=== PATIENT | female | born 1950 | race Caucasian/White ===

== ENCOUNTER 2022-12-28 15:05 | Inpatient (IN) | payer MEDICARE ==
[~2022-12-28] VITALS: Ht 165.1 cm; Wt 77.1 kg
[2022-12-28] MEDS ORDERED: acetaminophen 325mg tablet PO PRN ×2 (15:15)
[2022-12-28] MEDS ORDERED: magnesium hydroxide 30ml (MOM) UD suspension PO PRN (15:15)
[2022-12-28] MEDS ORDERED: magnesium Cl slow-release 64mg tablet PO PRN (15:15)
[2022-12-28] MEDS ORDERED: ondansetron/PF 4mg/2ml inj IV PRN (15:15)
[2022-12-28] MEDS ORDERED: magnesium 4gm in 100ml NS 100 ML IV PRN (15:15)
[2022-12-28] MEDS ORDERED: mag hydrox/Alum hydrox/simeth 30ml oral suspension PO PRN (15:15)
[2022-12-28] MEDS ORDERED: potassium Cl 40MEQ/1/2NS 520ml 520 ML IV PRN (15:15)
[2022-12-28] MEDS ORDERED: magnesium 2GM in 50ml NS 50 ML IV PRN (15:15)
[2022-12-28] MEDS ORDERED: potassium Cl 20 mEq SR tablet PO PRN (15:15)
--- NOTE | 2022-12-28 16:45 | NUR ---
Message: Ainsley Murcia [id number] No diet order. Eats regular minced moist diet. Thin liquids usually. NPO after midnight for [place]? Jess [id number]
[2022-12-28 18:00] VITALS: BP 113/62; PULSE 72; RESP 18; TEMP 97.4; O2SAT 92
[2022-12-28] MEDS ORDERED: LEVE500T PO (18:03)
[2022-12-28] MEDS ORDERED: DOCU-149 PO (18:03)
[2022-12-28] MEDS ORDERED: CLON-473 PO (18:03)
[2022-12-28] MEDS ORDERED: FAMO20TA79 PO (18:03)
[2022-12-28] MEDS ORDERED: SENN-263 PO (18:03)
[2022-12-28] MEDS ORDERED: VENL75TA4 PO (18:03)
[2022-12-28] MEDS ORDERED: CARV-49 PO (18:03)
[2022-12-28] MEDS ORDERED: FENO160T30 PO (18:03)
[2022-12-28] MEDS ORDERED: HYDR-3965 PO ×2 (18:03)
[2022-12-28] MEDS ORDERED: EZET10TA6 PO (18:03)
[2022-12-28] MEDS ORDERED: AMLO10TA48 PO (18:03)
[2022-12-28] MEDS ORDERED: ATOR40TA14 PO (18:03)
[2022-12-28] MEDS ORDERED: VIBE75TA PO (18:03)
[2022-12-28] MEDS ORDERED: MULT-1085 PO (18:03)
[2022-12-28] MEDS ORDERED: LOSA100T58 PO (18:03)
[2022-12-28 18:15] LABS: BASOPHILS % (AUTO) 0.5 % (0-1); EOSINOPHILS # (AUTO) 0.1 X10'3 (0-0.9); EOSINOPHILS % (AUTO) 0.7 % (0-6); HEMATOCRIT 36.8 % (35.0-45.0); HEMOGLOBIN 11.7 g/dl (12.0-16.0); LYMPHOCYTES # (AUTO) 2.6 X10'3 (1.1-4.8); MEAN CORPUSCULAR HEMOGLOBIN 28.3 PG (27.0-31.0); MEAN CORPUSCULAR HGB CONC 31.9 g/dL (33.0-36.5); MEAN CORPUSCULAR VOLUME 88.6 FL (78-98); MONOCYTES % (AUTO) 11.8 % (2-12); NEUTROPHILS # (AUTO) 4.7 X10'3 (1.8-7.7); PLATELET COUNT 428 X10'3 (140-440); RED BLOOD COUNT 4.15 X10'6 (4.20-5.60); RED CELL DISTRIBUTION WIDTH 17.3 % (11.5-14.5); WHITE BLOOD COUNT 8.4 X10'3 (4.5-11.0)
[2022-12-28 18:25] LABS: APTT 23 SECONDS (22-32); PROTHROMBIN TIME 10.6 SECONDS (9.0-12.0)
[2022-12-28 18:26] LABS: ALANINE AMINOTRANSFERASE 35 U/L (12-78); ALBUMIN 2.4 G/DL (3.4-5.0); ALBUMIN/GLOBULIN RATIO 0.5 (1.1-1.5); ALKALINE PHOSPHATASE 121 IU/L (46-116); ANION GAP 5 (8-16); ASPARTATE AMINO TRANSFERASE 26 U/L (10-37); BILIRUBIN,TOTAL 0.3 MG/DL (0.1-1.0); BLOOD UREA NITROGEN 14 MG/DL (7-18); BUN/CREATININE RATIO 22.2 (10.0-20.0); CALCIUM 11.8 MG/DL (8.5-10.1); CHLORIDE 100 MMOL/L (99-107); CREATININE 0.63 MG/DL (0.40-0.90); GLUCOSE 121 MG/DL (70-104); MAGNESIUM 1.8 MG/DL (1.5-2.4); SODIUM 132 MMOL/L (135-145); TOTAL CARBON DIOXIDE 27.5 MMOL/L (24-32); eCRCL 72 ML/MIN; eGFR > 90 ML/MIN
--- NOTE | 2022-12-28 18:26 | NUR ---
Report given to Renetta Jackson RN.
[2022-12-28] MEDS: normal saline 1000ml 1,000 ML IV SCH (18:47)
[2022-12-28] MEDS: piperacillin/tazo 4.5gm/100ml 100 ML IV SCH (18:47)
[2022-12-28] MEDS ORDERED: cloNIDine 0.1 mg tablet PO PRN (18:55)
[2022-12-28] MEDS ORDERED: vancomycin/NS 1 GM ADD-VANTAGE 250 ML IV SCH (19:00)
[2022-12-28 20:00] VITALS: RESP 18; O2SAT 95
[2022-12-28] MEDS: K and/or MAG REPLACEMENT MC SCH (20:00)
[2022-12-28] MEDS: vancomycin/NS 1 GM ADD-VANTAGE 250 ML IV SCH (20:47)
[2022-12-28] MEDS: carvedilol 6.25mg tablet PO SCH (20:49)
[2022-12-28] MEDS: venlafaxine 37.5mg tablet PO SCH (20:49)
[2022-12-28] MEDS: atorvastatin 20mg tablet PO SCH (20:49)
[2022-12-28] MEDS: levetiracetam 250mg tablet PO SCH (20:49)
[2022-12-28] MEDS: sennosides 8.6mg tablet PO SCH (20:50)
[2022-12-28] MEDS: HYDROcodone/acetaminophen 10/325mg tab PO PRN (21:59)
[2022-12-28 22:00] VITALS: BP 107/46; PULSE 76; RESP 10; TEMP 98.5; O2SAT 97
[2022-12-28] MEDS: diatr meglu/diatrizoate 30ml oral sol.-(3 dose) bottle PO SCH (22:40)
[2022-12-29] MEDS: piperacillin/tazo 4.5gm/100ml 100 ML IV SCH ×3 (00:25→16:46)
[2022-12-29] MEDS: normal saline 1000ml 1,000 ML IV SCH ×3 (06:33→21:25)
[2022-12-29 06:48] VITALS: BP 135/55; PULSE 66; RESP 14; TEMP 97.6; O2SAT 94
[2022-12-29] MEDS: diatr meglu/diatrizoate 30ml oral sol.-(3 dose) bottle PO SCH ×2 (07:00→11:28)
[2022-12-29] MEDS: vancomycin/NS 1 GM ADD-VANTAGE 250 ML IV SCH ×2 (07:01→21:37)
[2022-12-29 07:03] LABS: BASOPHILS # (AUTO) 0.1 X10'3 (0-0.2); BASOPHILS % (AUTO) 0.7 % (0-1); EOSINOPHILS # (AUTO) 0.2 X10'3 (0-0.9); EOSINOPHILS % (AUTO) 2.9 % (0-6); HEMATOCRIT 34.1 % (35.0-45.0); HEMOGLOBIN 11.1 g/dl (12.0-16.0); LYMPHOCYTES # (AUTO) 2.7 X10'3 (1.1-4.8); LYMPHOCYTES % (AUTO) 35.5 % (21-51); MEAN CORPUSCULAR HEMOGLOBIN 28.7 PG (27.0-31.0); MEAN CORPUSCULAR HGB CONC 32.4 g/dL (33.0-36.5); MEAN CORPUSCULAR VOLUME 88.7 FL (78-98); MEAN PLATELET VOLUME 8.1 FL (7.4-10.4); MONOCYTES # (AUTO) 0.9 X10'3 (0-0.9); NEUTROPHILS # (AUTO) 3.7 X10'3 (1.8-7.7); NEUTROPHILS % (AUTO) 48.9 % (42-75); PLATELET COUNT 372 X10'3 (140-440); RED BLOOD COUNT 3.85 X10'6 (4.20-5.60); RED CELL DISTRIBUTION WIDTH 17.1 % (11.5-14.5); WHITE BLOOD COUNT 7.5 X10'3 (4.5-11.0)
[2022-12-29 07:22] LABS: ALBUMIN 2.1 G/DL (3.4-5.0); ANION GAP 7 (8-16); BLOOD UREA NITROGEN 13 MG/DL (7-18); BUN/CREATININE RATIO 19.4 (10.0-20.0); CALCIUM 11.3 MG/DL (8.5-10.1); CHLORIDE 103 MMOL/L (99-107); CREATININE 0.67 MG/DL (0.40-0.90); GLUCOSE 107 MG/DL (70-104); MAGNESIUM 1.7 MG/DL (1.5-2.4); POTASSIUM 4.1 MMOL/L (3.5-5.1); SODIUM 136 MMOL/L (135-145); TOTAL CARBON DIOXIDE 26.2 MMOL/L (24-32); eCRCL 67 ML/MIN; eGFR 86 ML/MIN
[2022-12-29 07:30] VITALS: RESP 14; O2SAT 94
[2022-12-29] MEDS: venlafaxine 37.5mg tablet PO SCH ×3 (07:39→21:23)
[2022-12-29] MEDS: multivitamins, therapeutics tablet PO SCH (07:39)
[2022-12-29] MEDS: docusate sod 100mg capsule PO SCH (07:39)
[2022-12-29] MEDS: levetiracetam 250mg tablet PO SCH ×2 (07:39→21:21)
[2022-12-29] MEDS: amLODIPine 5mg tablet PO SCH (07:40)
[2022-12-29] MEDS: carvedilol 6.25mg tablet PO SCH ×2 (07:40→21:20)
[2022-12-29] MEDS: famotidine 20mg tablet PO SCH (07:40)
[2022-12-29] MEDS: ezetimibe 10mg tablet PO SCH (07:40)
[2022-12-29] MEDS: fenofibrate 145mg tablet PO SCH (07:40)
[2022-12-29] MEDS: Vibegron (Gemtesa) 75 MG TAB PO SCH (08:00)
[2022-12-29] MEDS: K and/or MAG REPLACEMENT MC SCH ×2 (08:00→20:00)
[2022-12-29] MEDS: losartan 50mg tablet PO SCH (08:37)
[2022-12-29] MEDS ORDERED: iohexol 300mg/ml 100ml inj. ONE (10:26)
--- NOTE | 2022-12-29 10:32 | NUR ---
Initial: Pt admit DX stage III/IV sacral wound hx stroke w/ cognitive deficits stays in bed declining PT at baseline per EMR. Pt on MM5/thin diet which tolerated at facility per caregiver in EMR. Pending initial PO trends though to be NPO after midnight tonight for debridement in OR tomorrow per EMR. Receiving routine MVI; RD TC to resident MD regarding change to MVM w/ Fe and vitamin C for wound healing needs- MD agreeable. No DM though just admit yesterday receiving routine colace BID and senna HS per EMR. Will monitor for PO tolerance and further nutrition intervention needs this admit. Rec: 1. continue MM5/thin diet; tolerates at baseline per caregiver. Consider STRATEGIC PLANNING MANAGER BSS if any PO tolerance concerns 2. monitor PO acceptance for ONS needs post-op; Ronni vs Ensure Enlive pending PO hx 3. routine MVM w/ Fe and vitamin C for wound healing needs 4. routine bowel care 5. scaled wt this admit; subsequent weekly wt Addendum: 12/29/22 at [address] Amended: Links added.
[2022-12-29 11:46] VITALS: BP 116/53; PULSE 66; RESP 16; TEMP 97.7; O2SAT 98
[2022-12-29] MEDS ORDERED: multi-vitamin w/minerals & ferrous gluconate 9 MG/15 ML oral LIQUID PO SCH (12:15)
--- NOTE | 2022-12-29 12:16 | NUR ---
PRESSURE ULCER EDUCATION: DEFINITION: A pressure ulcer is an area of skin that breaks down when you stay in one position too long. The constant pressure against the skin reduces the blood flow to that area and the affected tissue dies. CAUSES: "Being bedridden or in a wheelchair "Fragile skin "Having a chronic condition, such as diabetes or vascular disease "Inability to move certain parts of your body without assistance "Older age "Incontinence of urine or stool SYMPTOMS: "A reddened area that DOES NOT turn white when pressed on - this can be the beginning of a pressure ulcer "A blister, deep sore or a crater - these can be advanced pressure ulcers FIRST AID: "Relieve the pressure on this area "Keep the area clean and dry "Call your primary doctor if you see any of the above symptoms "DO NOT massage the area "DO NOT use a donut shaped or ring shaped pillow- these actually interfere with the blood flow and cause complications PREVENTION: "Check for pressure ulcers everyday "Change position at least every two hours to relieve pressure "Use items that help relieve pressure- pillows, sheepskin, foam padding, and powders. "Keep skin clean and dry "Eat healthy well balanced meals "Exercise daily IF YOU SEE ANY OF THESE SYMPTOMS WHILE IN THE HOSPITAL - TELL YOUR NURSE IMMEDIATELY. IF YOU SEE ANY OF THESE SYMPTOMS WHILE AT HOME OR HAVE ANY QUESTIONS OR CONCERNS ABOUT PRESSURE ULCERS - CALL YOUR PRIMARY DOCTOR IMMEDIATELY. Addendum: 12/29/22 at 1217 by Kiesha Auguste RN Amended: Links added.
--- NOTE | 2022-12-29 12:23 | NUR ---
patient down to CT
--- NOTE | 2022-12-29 12:26 | NUR ---
patient back to room
[2022-12-29] MEDS: ascorbic acid 500mg tablet PO SCH (16:42)
[2022-12-29 18:00] VITALS: BP 123/53; PULSE 73; RESP 16; TEMP 97.3; O2SAT 95
--- NOTE | 2022-12-29 18:44 | NUR ---
Problems reprioritized. Patient report given, questions answered & plan of care reviewed with SAM Chapa.
[2022-12-29 20:43] VITALS: RESP 14; O2SAT 95
[2022-12-29] MEDS: sennosides 8.6mg tablet PO SCH (21:21)
[2022-12-29] MEDS: HYDROcodone/acetaminophen 10/325mg tab PO PRN (21:23)
[2022-12-29] MEDS: atorvastatin 20mg tablet PO SCH (21:23)
[2022-12-29 21:30] VITALS: BP 124/49; PULSE 57; RESP 16; TEMP 98.4; O2SAT 93
--- NOTE | 2022-12-29 23:32 | NUR ---
FC 16 Fr inserted 2331. Patient tolerated well. Urine yellow, clear, no strong odor. Patient repositioned following insertion. Bed in lowest position; call light and fluids in reach.
[2022-12-30] VITALS (8 sets, daily range): BP systolic 135–149; BP diastolic 60–72; PULSE 57–81; RESP 12–20; TEMP 97.6–98.6; O2SAT 94–99
[2022-12-30] MEDS: piperacillin/tazo 4.5gm/100ml 100 ML IV SCH ×3 (00:14→17:47)
--- NOTE | 2022-12-30 06:19 | NUR ---
reported to days. noted pt resting - turn q2. only needed norco x1. anticipate surgery today but no orders. pre op ekg ordered. pt will need bath - pre op checklist started.
[2022-12-30] MEDS ORDERED: VANCOMYCIN LEVEL IV ONE (07:30)
[2022-12-30] MEDS: Vibegron (Gemtesa) 75 MG TAB PO SCH (08:00)
[2022-12-30] MEDS: K and/or MAG REPLACEMENT MC SCH ×2 (08:00→20:00)
[2022-12-30] MEDS: ezetimibe 10mg tablet PO SCH (08:00)
--- NOTE | 2022-12-30 08:16 | NUR ---
Student documentation: I have reviewed all interventions, assessments performed and documented by [employer] Angel Luis GAGNON Student. Student Medication Administration: For medication-passes by student of [facility] program in the time frame of 0630 to 1300, medications were reviewed, dispensed, administered and documented per hospital policy.
--- NOTE | 2022-12-30 08:44 | NUR ---
Patient states last BM "Three days ago," 12/27/22 Addendum: 12/30/22 at 0849 by Jack BAUMAN Amended: Links added.
[2022-12-30 08:50] LABS: BASOPHILS % (AUTO) 0.6 % (0-1); EOSINOPHILS # (AUTO) 0.2 X10'3 (0-0.9); EOSINOPHILS % (AUTO) 2.5 % (0-6); HEMATOCRIT 33.6 % (35.0-45.0); LYMPHOCYTES % (AUTO) 26.2 % (21-51); MEAN CORPUSCULAR HEMOGLOBIN 28.8 PG (27.0-31.0); MEAN CORPUSCULAR HGB CONC 32.7 g/dL (33.0-36.5); MEAN CORPUSCULAR VOLUME 88.1 FL (78-98); MEAN PLATELET VOLUME 8.4 FL (7.4-10.4); MONOCYTES # (AUTO) 0.7 X10'3 (0-0.9); MONOCYTES % (AUTO) 9.7 % (2-12); NEUTROPHILS # (AUTO) 4.7 X10'3 (1.8-7.7); PLATELET COUNT 378 X10'3 (140-440); RED BLOOD COUNT 3.82 X10'6 (4.20-5.60); RED CELL DISTRIBUTION WIDTH 16.9 % (11.5-14.5); WHITE BLOOD COUNT 7.7 X10'3 (4.5-11.0)
[2022-12-30 08:58] LABS: PROTHROMBIN TIME 10.5 SECONDS (9.0-12.0)
[2022-12-30 09:03] LABS: ANION GAP 8 (8-16); BLOOD UREA NITROGEN 4 MG/DL (7-18); BUN/CREATININE RATIO 8.3 (10.0-20.0); CALCIUM 10.6 MG/DL (8.5-10.1); CHLORIDE 107 MMOL/L (99-107); CREATININE 0.48 MG/DL (0.40-0.90); GLUCOSE 98 MG/DL (70-104); MAGNESIUM 1.6 MG/DL (1.5-2.4); POTASSIUM 3.4 MMOL/L (3.5-5.1); SODIUM 139 MMOL/L (135-145); TOTAL CARBON DIOXIDE 23.8 MMOL/L (24-32); VANCOMYCIN,TROUGH 19.6 ug/mL (10.0-20.0); eCRCL 94 ML/MIN; eGFR > 90 ML/MIN
[2022-12-30] MEDS: vancomycin/NS 1 GM ADD-VANTAGE 250 ML IV SCH ×2 (09:25→21:46)
[2022-12-30] MEDS: normal saline 1000ml 1,000 ML IV SCH ×3 (09:25→21:49)
[2022-12-30] MEDS: docusate sod 100mg capsule PO SCH (09:26)
[2022-12-30] MEDS: carvedilol 6.25mg tablet PO SCH ×2 (09:27→21:51)
[2022-12-30] MEDS: losartan 50mg tablet PO SCH (09:28)
[2022-12-30] MEDS: venlafaxine 37.5mg tablet PO SCH ×3 (09:29→21:43)
[2022-12-30] MEDS: levetiracetam 250mg tablet PO SCH ×2 (09:30→21:45)
[2022-12-30] MEDS: fenofibrate 145mg tablet PO SCH (09:31)
[2022-12-30] MEDS: amLODIPine 5mg tablet PO SCH (09:31)
[2022-12-30] MEDS: famotidine 20mg tablet PO SCH (09:31)
[2022-12-30] MEDS: multivitamins, therapeutics tablet PO SCH (09:32)
[2022-12-30] MEDS: ascorbic acid 500mg tablet PO SCH ×2 (09:32→18:05)
[2022-12-30] MEDS: potassium Cl 20 mEq SR tablet PO PRN ×3 (09:58→21:40)
[2022-12-30] MEDS: morphine 2 MG/ML inj. syringe IV PRN (16:45)
[2022-12-30] MEDS: atorvastatin 20mg tablet PO SCH (21:40)
[2022-12-30] MEDS: sennosides 8.6mg tablet PO SCH (21:40)
[2022-12-30] MEDS: HYDROcodone/acetaminophen 10/325mg tab PO PRN (21:41)
--- NOTE | 2022-12-30 23:32 | NUR ---
Student documentation: I have reviewed interventions, assessments performed and documented by Salima GAINES [facility].
[2022-12-31] VITALS (23 sets, daily range): BP systolic 112–157; BP diastolic 47–106; PULSE 57–73; RESP 13–20; TEMP 97.5–98.3; O2SAT 94–99
[2022-12-31] MEDS: piperacillin/tazo 4.5gm/100ml 100 ML IV SCH ×3 (00:06→17:33)
--- NOTE | 2022-12-31 06:23 | NUR ---
reported to days. noted pt has surgery scheduled for this am. pre op wipes complete. repositioned [id number]
--- NOTE | 2022-12-31 06:55 | NUR ---
Neuromuscular - Left is weaker than right upper and lower Addendum: 12/31/22 at 0720 by Jack BAUMAN Amended: Links added.
[2022-12-31 06:57] LABS: BASOPHILS # (AUTO) 0.1 X10'3 (0-0.2); BASOPHILS % (AUTO) 0.8 % (0-1); EOSINOPHILS # (AUTO) 0.2 X10'3 (0-0.9); EOSINOPHILS % (AUTO) 3.5 % (0-6); HEMATOCRIT 34.3 % (35.0-45.0); LYMPHOCYTES # (AUTO) 2.2 X10'3 (1.1-4.8); LYMPHOCYTES % (AUTO) 31.3 % (21-51); MEAN CORPUSCULAR HEMOGLOBIN 28.3 PG (27.0-31.0); MEAN CORPUSCULAR VOLUME 88.4 FL (78-98); MONOCYTES # (AUTO) 0.8 X10'3 (0-0.9); MONOCYTES % (AUTO) 11.6 % (2-12); NEUTROPHILS # (AUTO) 3.7 X10'3 (1.8-7.7); NEUTROPHILS % (AUTO) 52.8 % (42-75); PLATELET COUNT 386 X10'3 (140-440); RED BLOOD COUNT 3.88 X10'6 (4.20-5.60); RED CELL DISTRIBUTION WIDTH 17.1 % (11.5-14.5)
[2022-12-31] MEDS: docusate sod 100mg capsule PO SCH (07:05)
[2022-12-31] MEDS: venlafaxine 37.5mg tablet PO SCH ×3 (07:05→21:33)
[2022-12-31] MEDS: losartan 50mg tablet PO SCH (07:05)
[2022-12-31] MEDS: K and/or MAG REPLACEMENT MC SCH ×2 (07:05→19:35)
[2022-12-31] MEDS: carvedilol 6.25mg tablet PO SCH ×2 (07:05→21:34)
[2022-12-31] MEDS: famotidine 20mg tablet PO SCH (07:06)
[2022-12-31] MEDS: ezetimibe 10mg tablet PO SCH (07:06)
[2022-12-31] MEDS: fenofibrate 145mg tablet PO SCH (07:06)
[2022-12-31] MEDS: Vibegron (Gemtesa) 75 MG TAB PO SCH (07:06)
[2022-12-31] MEDS: levetiracetam 250mg tablet PO SCH ×2 (07:06→21:34)
[2022-12-31] MEDS: multivitamins, therapeutics tablet PO SCH (07:06)
[2022-12-31] MEDS: ascorbic acid 500mg tablet PO SCH ×2 (07:06→17:33)
[2022-12-31] MEDS: amLODIPine 5mg tablet PO SCH (07:06)
[2022-12-31 07:08] LABS: ANION GAP 5 (8-16); BLOOD UREA NITROGEN 3 MG/DL (7-18); BUN/CREATININE RATIO 5.8 (10.0-20.0); CALCIUM 11.2 MG/DL (8.5-10.1); CHLORIDE 110 MMOL/L (99-107); CREATININE 0.52 MG/DL (0.40-0.90); GLUCOSE 93 MG/DL (70-104); MAGNESIUM 1.9 MG/DL (1.5-2.4); POTASSIUM 4.3 MMOL/L (3.5-5.1); SODIUM 142 MMOL/L (135-145); TOTAL CARBON DIOXIDE 26.8 MMOL/L (24-32); eCRCL 87 ML/MIN; eGFR > 90 ML/MIN
[2022-12-31] MEDS: vancomycin/NS 1 GM ADD-VANTAGE 250 ML IV SCH ×3 (08:00→23:29)
[2022-12-31] MEDS ORDERED: ondansetron/PF 4mg/2ml inj IV PRN (08:10)
[2022-12-31] MEDS ORDERED: proCHLORperazine 10 MG/2 ml inj IV PRN (08:10)
[2022-12-31] MEDS ORDERED: morphine 2 MG/ML inj. syringe IV PRN (08:10)
[2022-12-31] MEDS ORDERED: hydrALAZINE 20mg/ml inj. IV PRN (08:10)
[2022-12-31] MEDS ORDERED: labetalol 20mg/4ml (5mg/ml) syringe IV PRN (08:10)
[2022-12-31] MEDS: ringers solution, lacted 1,000 ML IV SCH ×2 (08:10→18:10)
[2022-12-31] MEDS ORDERED: morphine 4 MG/ML inj SYRINge IV PRN (08:10)
[2022-12-31] MEDS ORDERED: meperidine/PF 25mg/ml syringe IV PRN (08:15)
[2022-12-31] MEDS ORDERED: HYDROmorphone/PF 0.2 MG/ML SYRINGE IV PRN ×2 (08:15)
[2022-12-31] MEDS ORDERED: acetaminophen 1,000mg/100ml IV 100 ML IV PRN (08:15)
[2022-12-31] MEDS ORDERED: sevoflurane 250ml liquid IH ONE (08:18)
[2022-12-31] MEDS ORDERED: fentaNYL/PF 50MCG/1 ML 2ML syringe ONE (08:20)
[2022-12-31] MEDS ORDERED: midazolam 1 mg/ML 2ml injection ONE (08:21)
--- NOTE | 2022-12-31 08:22 | NUR ---
RN spoke with pharmacist regarding morning IV vanco and zosyn. Patient left for OR at 0745, IV meds held for now and pharm will work on retiming if need be
[2022-12-31] MEDS ORDERED: dexamethasone sod phosphate 4mg/ml inj. ONE (08:37)
[2022-12-31] MEDS ORDERED: ondansetron/PF 4mg/2ml inj ONE (08:37)
[2022-12-31] MEDS ORDERED: propofol inj 20 ML IV ONE ×2 (08:37→09:02)
[2022-12-31] MEDS ORDERED: LIDOcaine 2% (20mg/ml) 5ml vial ONE (08:37)
[2022-12-31] MEDS ORDERED: 0.9 % SODIUM CHLORIDE 10 ML VIAL ONE (08:44)
[2022-12-31] MEDS ORDERED: ePHEDrine 50MG/ML INJ. ONE (08:44)
--- NOTE | 2022-12-31 09:20 | NUR ---
Received from OR via BED, accompanied by Anesthesiologist DR. BURNHAM and report given by Anesthesiologist APATIENT WAKING UP, NO S/S OF PAIN, V/S WNL, CSM INTACT, SCD ON. DRESSING TO POSTERIOR BUTTOCKS ABD 4X4 WITH PACKING SEROSANGINOUS MINIMAL SATURATION. F/C DRAINING CLEAR YELLOW URINE. 20G LUE.
--- NOTE | 2022-12-31 10:10 | NUR ---
PATIENT ORIENTEDX3, C/O PAIN AT TIMES SEE EMAR, V/S WNL, CSM INTACT, SCD ON. DRESSING TO POSTERIOR BUTTOCKS ABD 4X4 WITH PACKING SEROSANGINOUS MINIMAL SATURATION. F/C DRAINING CLEAR YELLOW URINE. 20G LUE. PATIENT TAKEN TO ORTHO FLOOR ROOM WITH ALL BELONGINGS AND HOOKED UP TO ALL MONITORS IN ROOM AND REPORT GIVEN TO RN WHO HAS TAKEN OVER PATIENT CARE.
--- NOTE | 2022-12-31 12:06 | NUR ---
WOC NOTE: Patient had debridement of abscess today per primary nurse. WOC will review surgical report and continue to monitor pt progress.
[2022-12-31] MEDS: normal saline 1000ml 1,000 ML IV SCH ×2 (12:16→23:30)
[2022-12-31] MEDS: morphine 2 MG/ML inj. syringe IV PRN (17:35)
--- NOTE | 2022-12-31 18:25 | NUR ---
Patient in room ORTHO 4014. I have received report from SAM Dougherty and had the opportunity to ask questions and assume patient care.
[2022-12-31] MEDS: atorvastatin 20mg tablet PO SCH (21:33)
[2022-12-31] MEDS: sennosides 8.6mg tablet PO SCH (21:34)
[2022-12-31] MEDS: HYDROcodone/acetaminophen 10/325mg tab PO PRN (21:43)
[2023-01-01] MEDS: piperacillin/tazo 4.5gm/100ml 100 ML IV SCH ×2 (00:36→08:34)
[2023-01-01 01:17] LABS: BILIRUBIN,URINE NEGATIVE (Neg); CLARITY,URINE SLIGHTLY CLOUDY (Clear); COLOR,URINE STRAW (Yellow); GLUCOSE, URINE NEGATIVE (Neg); KETONES,URINE NEGATIVE (Neg); LEUKOCYTE ESTERASE ,URINE NEGATIVE (Neg); NITRITES, URINE NEGATIVE (Neg); OCCULT BLOOD,URINE TRACE-INTACT (Neg); PH,URINE 6.5 (4.8-8.0); PROTEIN,URINE NEGATIVE (Neg); UROBILINOGEN,URINE 0.2 E.U/dL (0.2-1.0)
[2023-01-01 01:23] LABS: UA COLLECTION TYPE NON-SPECIFIED
[2023-01-01 01:25] LABS: BACTERIA,URINE FEW /HPF (Neg); RBC,URINE 0-2 /HPF (0-2); SQUAMOUS EPITHELIAL CELL,UR FEW /LPF (FEW); TRANSITIONAL EPI CELLS,URINE FEW /HPF; WBC,URINE 0-4 /HPF (0-4)
[2023-01-01 01:26] LABS: YEAST FEW /HPF (NEGATIVE)
[2023-01-01 01:27] LABS: MUCUS STRANDS FEW /LPF (Neg)
[2023-01-01 02:00] VITALS: BP 126/60; PULSE 62; RESP 16; TEMP 98.2; O2SAT 94
[2023-01-01] MEDS: ringers solution, lacted 1,000 ML IV SCH ×2 (04:10→14:10)
[2023-01-01 06:00] VITALS: BP 136/68; PULSE 63; RESP 16; TEMP 97.6; O2SAT 93
--- NOTE | 2023-01-01 06:00 | NUR ---
Patient in room ORTHO 4014. I have received report from Triny and had the opportunity to ask questions and assume patient care.
--- NOTE | 2023-01-01 06:33 | NUR ---
Problems reprioritized. Patient report given, questions answered & plan of care reviewed with SAM Ha.
[2023-01-01 06:43] LABS: BASOPHILS % (AUTO) 0.3 % (0-1); EOSINOPHILS # (AUTO) 0.1 X10'3 (0-0.9); EOSINOPHILS % (AUTO) 1.3 % (0-6); HEMATOCRIT 32.7 % (35.0-45.0); HEMOGLOBIN 10.6 g/dl (12.0-16.0); LYMPHOCYTES # (AUTO) 2.3 X10'3 (1.1-4.8); LYMPHOCYTES % (AUTO) 27.4 % (21-51); MEAN CORPUSCULAR HEMOGLOBIN 28.6 PG (27.0-31.0); MEAN CORPUSCULAR HGB CONC 32.3 g/dL (33.0-36.5); MEAN CORPUSCULAR VOLUME 88.4 FL (78-98); MONOCYTES % (AUTO) 11.9 % (2-12); NEUTROPHILS # (AUTO) 4.9 X10'3 (1.8-7.7); NEUTROPHILS % (AUTO) 59.1 % (42-75); PLATELET COUNT 369 X10'3 (140-440); WHITE BLOOD COUNT 8.3 X10'3 (4.5-11.0)
[2023-01-01 07:18] LABS: ANION GAP 8 (8-16); BLOOD UREA NITROGEN 7 MG/DL (7-18); BUN/CREATININE RATIO 8.4 (10.0-20.0); CALCIUM 10.3 MG/DL (8.5-10.1); CHLORIDE 107 MMOL/L (99-107); CREATININE 0.83 MG/DL (0.40-0.90); GLUCOSE 107 MG/DL (70-104); MAGNESIUM 1.6 MG/DL (1.5-2.4); POTASSIUM 3.4 MMOL/L (3.5-5.1); SODIUM 141 MMOL/L (135-145); TOTAL CARBON DIOXIDE 25.7 MMOL/L (24-32); eCRCL 54 ML/MIN; eGFR 67 ML/MIN
[2023-01-01] MEDS: Vibegron (Gemtesa) 75 MG TAB PO SCH (08:00)
[2023-01-01] MEDS: K and/or MAG REPLACEMENT MC SCH ×2 (08:00→19:35)
[2023-01-01 08:35] VITALS: RESP 16; O2SAT 93
[2023-01-01] MEDS: docusate sod 100mg capsule PO SCH (08:35)
[2023-01-01] MEDS: carvedilol 6.25mg tablet PO SCH ×2 (08:35→21:27)
[2023-01-01] MEDS: venlafaxine 37.5mg tablet PO SCH ×3 (08:36→21:27)
[2023-01-01] MEDS: losartan 50mg tablet PO SCH (08:36)
[2023-01-01] MEDS: famotidine 20mg tablet PO SCH (08:37)
[2023-01-01] MEDS: fenofibrate 145mg tablet PO SCH (08:37)
[2023-01-01] MEDS: ezetimibe 10mg tablet PO SCH (08:37)
[2023-01-01] MEDS: levetiracetam 250mg tablet PO SCH ×2 (08:37→21:27)
[2023-01-01] MEDS: amLODIPine 5mg tablet PO SCH (08:37)
[2023-01-01] MEDS: ascorbic acid 500mg tablet PO SCH ×2 (08:37→16:55)
[2023-01-01] MEDS: multivitamins, therapeutics tablet PO SCH (08:37)
[2023-01-01 10:00] VITALS: BP 105/39; PULSE 56; RESP 15; TEMP 98.3; O2SAT 94
[2023-01-01] MEDS: normal saline 1000ml 1,000 ML IV SCH ×2 (11:00→21:26)
[2023-01-01] MEDS: CefTRIAXone/D5W-Rocephin 1gm 50 ML IV SCH (11:03)
--- NOTE | 2023-01-01 11:39 | NUR ---
F/u 01/01: Pt s/p OR 12/31 for debridement of large sacral wound per EMR. PO ~92% avg past 6 meals so far this LOS outside initial NPO and NPO for OR yesterday AM; overall partially meeting estimated needs given NPO periods. Given good meals acceptance RD recommends Ronni smoothie BIDBD for wound healing-MD notified. Per RN, yet to see MD this AM RD d/w RN recommends routine MVM w/ Fe and Zinc supplementation for wound healing needs if MD agreeable. MVM w/ Fe previously ordered however only for one dose so pt back to daily MVI currently. LBM 12/30 receiving routine colace and senna per EMR. Will continue to follow. Rec: 1. continue MM5/thin diet; tolerates at baseline per caregiver. Consider COMMERCIAL PRINT SALESMAN BSS if any PO tolerance concerns 2. Ronni smoothie BIDBD for wound healing; pending physician verification in EMR 3. routine MVM w/ Fe, vitamin C, and Zinc for wound healing needs 4. routine bowel care 5. scaled wt this admit; subsequent weekly wt Addendum: 01/01/23 at [address] Amended: Links added.
[2023-01-01] MEDS ORDERED: POTASSIUM BICARB 20meq eff tab 20 MEQ TABLET.EFF PO ONE (13:20)
--- NOTE | 2023-01-01 15:58 | NUR ---
WOC note: Patient had debridement per surgeon's notes 12/31/2022. Patient is POD X1. Plan to continue normal saline wet to moist shahzad dressing per orders. WOC will continue to monitor.
[2023-01-01] MEDS ORDERED: magnesium Cl slow-release 64mg tablet PO PRN (17:50)
[2023-01-01] MEDS ORDERED: potassium Cl 20 mEq SR tablet PO PRN ×2 (17:50)
--- NOTE | 2023-01-01 17:54 | NUR ---
Patient in room ORTHO 4014. I have received report from Chantel and had the opportunity to ask questions and assume patient care.
[2023-01-01 18:00] VITALS: BP 134/64; PULSE 71; RESP 15; TEMP 98; O2SAT 96
--- NOTE | 2023-01-01 18:11 | NUR ---
Problems reprioritized. Patient report given, questions answered & plan of care reviewed with Prudence.
[2023-01-01 19:04] LABS: MAGNESIUM 1.7 MG/DL (1.5-2.4); POTASSIUM 3.9 MMOL/L (3.5-5.1)
[2023-01-01 20:00] VITALS: RESP 15; O2SAT 96
[2023-01-01] MEDS: HYDROcodone/acetaminophen 10/325mg tab PO PRN (21:26)
[2023-01-01] MEDS: sennosides 8.6mg tablet PO SCH (21:27)
[2023-01-01] MEDS: atorvastatin 20mg tablet PO SCH (21:30)
[2023-01-02] MEDS: ringers solution, lacted 1,000 ML IV SCH ×3 (00:10→20:10)
[2023-01-02] MEDS: normal saline 1000ml 1,000 ML IV SCH ×3 (05:15→21:35)
[2023-01-02 06:06] VITALS: BP 134/84; PULSE 84; RESP 20; TEMP 97.8; O2SAT 96
--- NOTE | 2023-01-02 06:22 | NUR ---
Problems reprioritized. Patient report given, questions answered & plan of care reviewed with REANNA RN.
--- NOTE | 2023-01-02 06:23 | NUR ---
DRESSING PER RECOMMENDATION Addendum: 01/02/23 at 0623 by Lisandra Haney RN Amended: Links added.
[2023-01-02 07:06] LABS: ALBUMIN 2.5 G/DL (3.4-5.0); ANION GAP 9 (8-16); BLOOD UREA NITROGEN 6 MG/DL (7-18); BUN/CREATININE RATIO 7.4 (10.0-20.0); CHLORIDE 108 MMOL/L (99-107); CREATININE 0.81 MG/DL (0.40-0.90); GLUCOSE 112 MG/DL (70-104); POTASSIUM 3.5 MMOL/L (3.5-5.1); SODIUM 145 MMOL/L (135-145); TOTAL CARBON DIOXIDE 28.1 MMOL/L (24-32); eCRCL 56 ML/MIN; eGFR 69 ML/MIN
[2023-01-02 07:10] LABS: BASOPHILS % (AUTO) 0.3 % (0-1); EOSINOPHILS # (AUTO) 0.2 X10'3 (0-0.9); EOSINOPHILS % (AUTO) 2.1 % (0-6); HEMATOCRIT 39.3 % (35.0-45.0); HEMOGLOBIN 12.7 g/dl (12.0-16.0); LYMPHOCYTES # (AUTO) 1.8 X10'3 (1.1-4.8); LYMPHOCYTES % (AUTO) 20.4 % (21-51); MEAN CORPUSCULAR HEMOGLOBIN 28.7 PG (27.0-31.0); MEAN CORPUSCULAR HGB CONC 32.5 g/dL (33.0-36.5); MEAN CORPUSCULAR VOLUME 88.4 FL (78-98); MEAN PLATELET VOLUME 7.9 FL (7.4-10.4); MONOCYTES # (AUTO) 0.7 X10'3 (0-0.9); MONOCYTES % (AUTO) 7.2 % (2-12); NEUTROPHILS # (AUTO) 6.3 X10'3 (1.8-7.7); PLATELET COUNT 412 X10'3 (140-440); RED BLOOD COUNT 4.44 X10'6 (4.20-5.60); RED CELL DISTRIBUTION WIDTH 16.7 % (11.5-14.5); WHITE BLOOD COUNT 9.1 X10'3 (4.5-11.0)
[2023-01-02 07:24] LABS: CALCIUM 12.2 MG/DL (8.5-10.1)
[2023-01-02] MEDS: CefTRIAXone/D5W-Rocephin 1gm 50 ML IV SCH (07:45)
[2023-01-02] MEDS: docusate sod 100mg capsule PO SCH (07:48)
[2023-01-02] MEDS: carvedilol 6.25mg tablet PO SCH ×2 (07:48→21:37)
[2023-01-02] MEDS: multivitamins, therapeutics tablet PO SCH (07:51)
[2023-01-02] MEDS: losartan 50mg tablet PO SCH (07:51)
[2023-01-02] MEDS: fenofibrate 145mg tablet PO SCH (07:51)
[2023-01-02] MEDS: levetiracetam 250mg tablet PO SCH ×2 (07:51→21:36)
[2023-01-02] MEDS: venlafaxine 37.5mg tablet PO SCH ×3 (07:51→21:36)
[2023-01-02] MEDS: famotidine 20mg tablet PO SCH (07:51)
[2023-01-02] MEDS: ascorbic acid 500mg tablet PO SCH ×3 (07:52→21:36)
[2023-01-02] MEDS: ezetimibe 10mg tablet PO SCH (07:52)
[2023-01-02 08:00] VITALS: RESP 18
[2023-01-02] MEDS: Vibegron (Gemtesa) 75 MG TAB PO SCH (08:00)
[2023-01-02] MEDS: K and/or MAG REPLACEMENT MC SCH ×2 (08:00→19:15)
[2023-01-02] MEDS: amLODIPine 5mg tablet PO SCH (08:13)
[2023-01-02 10:51] VITALS: BP 153/71; PULSE 72; RESP 16; TEMP 97.6; O2SAT 96
--- NOTE | 2023-01-02 17:32 | NUR ---
Dressing change wet to moist on sacrum
[2023-01-02 18:00] VITALS: BP 148/78; PULSE 74; RESP 18; TEMP 98.6; O2SAT 95
--- NOTE | 2023-01-02 18:29 | NUR ---
Problems reprioritized. Patient report given, questions answered & plan of care reviewed with Prudence RN.
--- NOTE | 2023-01-02 19:10 | NUR ---
Patient in room ORTHO 4014. I have received report from REANNA VARGAS and had the opportunity to ask questions and assume patient care.
[2023-01-02 20:00] VITALS: RESP 18; O2SAT 95
[2023-01-02] MEDS: morphine 2 MG/ML inj. syringe IV PRN (21:35)
[2023-01-02] MEDS: atorvastatin 20mg tablet PO SCH (21:36)
[2023-01-02] MEDS: sennosides 8.6mg tablet PO SCH (21:36)
[2023-01-02 22:00] VITALS: BP 143/60; PULSE 75; RESP 16; TEMP 98.2; O2SAT 95
[2023-01-03 06:00] VITALS: BP 130/52; PULSE 63; RESP 15; TEMP 96.8; O2SAT 95
[2023-01-03] MEDS: ringers solution, lacted 1,000 ML IV SCH ×2 (06:10→16:10)
--- NOTE | 2023-01-03 06:30 | NUR ---
Problems reprioritized. Patient report given, questions answered & plan of care reviewed with REANNA RN.
--- NOTE | 2023-01-03 06:44 | NUR ---
Patient in room ORTHO 4014. I have received report from Lisandra VARGAS and had the opportunity to ask questions and assume patient care.
[2023-01-03] MEDS: normal saline 1000ml 1,000 ML IV SCH ×2 (07:44→21:15)
[2023-01-03] MEDS: CefTRIAXone/D5W-Rocephin 1gm 50 ML IV SCH (07:44)
[2023-01-03] MEDS: fenofibrate 145mg tablet PO SCH (07:45)
[2023-01-03] MEDS: docusate sod 100mg capsule PO SCH (07:45)
[2023-01-03] MEDS: carvedilol 6.25mg tablet PO SCH ×2 (07:45→22:00)
[2023-01-03] MEDS: losartan 50mg tablet PO SCH (07:46)
[2023-01-03] MEDS: venlafaxine 37.5mg tablet PO SCH ×3 (07:47→22:00)
[2023-01-03] MEDS: levetiracetam 250mg tablet PO SCH ×2 (07:47→22:00)
[2023-01-03] MEDS: amLODIPine 5mg tablet PO SCH (07:48)
[2023-01-03] MEDS: multivitamins, therapeutics tablet PO SCH (07:48)
[2023-01-03] MEDS: famotidine 20mg tablet PO SCH (07:48)
[2023-01-03 08:00] VITALS: RESP 18
[2023-01-03] MEDS: K and/or MAG REPLACEMENT MC SCH ×2 (08:00→20:00)
[2023-01-03] MEDS: Vibegron (Gemtesa) 75 MG TAB PO SCH (08:00)
[2023-01-03] MEDS: ezetimibe 10mg tablet PO SCH (08:00)
[2023-01-03 10:49] VITALS: RESP 16; O2SAT 92
--- NOTE | 2023-01-03 17:30 | NUR ---
Changed patient bed to an air bed
[2023-01-03] MEDS: ascorbic acid 500mg tablet PO SCH (17:49)
--- NOTE | 2023-01-03 18:00 | NUR ---
Student documentation: I have reviewed all interventions, assessments performed and documented by Phani SIERRA. Student Medication Administration: For this medication-pass time frame, all medication were reviewed, dispensed, administered and documented per hospital policy by Phani SIERRA.
[2023-01-03 18:30] VITALS: BP 145/79; PULSE 68; RESP 15; TEMP 97.8; O2SAT 97
--- NOTE | 2023-01-03 18:32 | NUR ---
Patient in room ORTHO 4014b. I have received report from Samara VARGAS and had the opportunity to ask questions and assume patient care.
[2023-01-03] MEDS: sennosides 8.6mg tablet PO SCH (21:00)
[2023-01-03 22:00] VITALS: BP 125/89; PULSE 73; RESP 16; TEMP 97.5; O2SAT 100
[2023-01-03] MEDS: atorvastatin 20mg tablet PO SCH (22:00)
[2023-01-04] MEDS: ringers solution, lacted 1,000 ML IV SCH (02:10)
[2023-01-04 06:00] VITALS: BP 180/84; PULSE 69; RESP 16; TEMP 98; O2SAT 96
--- NOTE | 2023-01-04 06:38 | NUR ---
Patient in room ORTHO 4014. I have received report from SAM Pascual and had the opportunity to ask questions and assume patient care.
[2023-01-04] MEDS: sennosides 8.6mg tablet PO SCH (07:08)
[2023-01-04] MEDS: multivitamins, therapeutics tablet PO SCH (07:09)
[2023-01-04] MEDS: CefTRIAXone/D5W-Rocephin 1gm 50 ML IV SCH (07:10)
[2023-01-04] MEDS: losartan 50mg tablet PO SCH (07:10)
[2023-01-04] MEDS: atorvastatin 20mg tablet PO SCH (07:11)
[2023-01-04] MEDS: levetiracetam 250mg tablet PO SCH ×2 (07:11→21:36)
[2023-01-04] MEDS: fenofibrate 145mg tablet PO SCH (07:12)
[2023-01-04] MEDS: carvedilol 6.25mg tablet PO SCH ×2 (07:12→21:37)
[2023-01-04] MEDS: amLODIPine 5mg tablet PO SCH (07:12)
[2023-01-04] MEDS: ascorbic acid 500mg tablet PO SCH ×2 (07:13→17:30)
[2023-01-04] MEDS: famotidine 20mg tablet PO SCH (07:13)
[2023-01-04] MEDS: venlafaxine 37.5mg tablet PO SCH ×3 (07:13→21:37)
[2023-01-04] MEDS: normal saline 1000ml 1,000 ML IV SCH ×2 (07:15→13:22)
[2023-01-04] MEDS: HYDROcodone/acetaminophen 10/325mg tab PO PRN ×3 (07:21→22:00)
[2023-01-04] MEDS: ezetimibe 10mg tablet PO SCH (07:21)
[2023-01-04] MEDS: docusate sod 100mg capsule PO SCH (07:21)
[2023-01-04] MEDS: K and/or MAG REPLACEMENT MC SCH ×2 (08:00→20:00)
[2023-01-04] MEDS: Vibegron (Gemtesa) 75 MG TAB PO SCH (08:00)
--- NOTE | 2023-01-04 15:42 | NUR ---
WOUND VAC EDUCATION PROVIDED BY WOUND CARE 1. Patient instructed to call the Wound Center or their Home Health Agency immediately if: * They notice a change in the color or amount of the fluid in the canister. * Their wound looks more red than usual or has a foul smell. * The skin around their wound looks reddened or irritated. * The dressing feels loose or appears to be loose. * They experience any increase or changes in their pain. * The alarm will not turn off. 2. Patient instructed that they should not be disconnected from suction for more than 2 hours at a time. * If they are not able to get the suction back on, they need to remove the dressing and take all of the foam out of the wound. * Then moisten sterile gauze with normal saline and place on/in the wound. * Change the dressing once a day until arrangements have been made to replace the wound vac dressing. 3. Patient instructed to turn the wound vac machine OFF and call 911 or go to the ED immediately if their canister fills rapidly with blood. 4. If any of these occur while in the hospital tell a nurse immediately. Addendum: 01/04/23 at 1542 by Alie Laguerre LVN Amended: Links added.
[2023-01-04 19:00] VITALS: BP 157/83; PULSE 77; RESP 17; TEMP 97.8; O2SAT 100
--- NOTE | 2023-01-04 19:29 | NUR ---
Problems reprioritized. Patient report given, questions answered & plan of care reviewed with SAM Melendez.
[2023-01-04 22:00] VITALS: BP 146/78; PULSE 73; RESP 16; TEMP 98.2; O2SAT 96
[2023-01-05] MEDS: normal saline 1000ml 1,000 ML IV SCH (03:15)
[2023-01-05 06:00] VITALS: BP 149/78; PULSE 59; RESP 20; TEMP 97.9; O2SAT 97
--- NOTE | 2023-01-05 06:41 | NUR ---
I have received report from [facility] and had the opportunity to ask questions and assume patient care. No distress at this time.
--- NOTE | 2023-01-05 06:56 | NUR ---
Report to Laurie Jordan.
[2023-01-05] MEDS: CefTRIAXone/D5W-Rocephin 1gm 50 ML IV SCH (07:36)
--- NOTE | 2023-01-05 07:41 | NUR ---
IV fluids/ medications non admin due to IV being ordered to be taken out yesterday on day shift.
[2023-01-05] MEDS: multivitamins, therapeutics tablet PO SCH (07:56)
[2023-01-05] MEDS: ascorbic acid 500mg tablet PO SCH (07:57)
[2023-01-05] MEDS: levetiracetam 250mg tablet PO SCH (07:57)
[2023-01-05] MEDS: docusate sod 100mg capsule PO SCH (07:57)
[2023-01-05] MEDS: losartan 50mg tablet PO SCH (07:57)
[2023-01-05] MEDS: venlafaxine 37.5mg tablet PO SCH (07:57)
[2023-01-05] MEDS: fenofibrate 145mg tablet PO SCH (07:57)
[2023-01-05 07:58] VITALS: BP_SYST 149; PULSE 77
[2023-01-05] MEDS: famotidine 20mg tablet PO SCH (07:58)
[2023-01-05] MEDS: ezetimibe 10mg tablet PO SCH (07:58)
[2023-01-05] MEDS: carvedilol 6.25mg tablet PO SCH (07:58)
[2023-01-05] MEDS: Vibegron (Gemtesa) 75 MG TAB PO SCH (07:58)
[2023-01-05] MEDS: amLODIPine 5mg tablet PO SCH (07:58)
[2023-01-05 08:00] VITALS: RESP 16; O2SAT 96
[2023-01-05] MEDS: K and/or MAG REPLACEMENT MC SCH (08:00)
[2023-01-05 08:30] VITALS: RESP 20; O2SAT 97
[2023-01-05 09:54] LABS: BASOPHILS % (AUTO) 0.5 % (0-1); EOSINOPHILS # (AUTO) 0.3 X10'3 (0-0.9); EOSINOPHILS % (AUTO) 4.1 % (0-6); HEMATOCRIT 34.3 % (35.0-45.0); HEMOGLOBIN 11.3 g/dl (12.0-16.0); LYMPHOCYTES # (AUTO) 1.9 X10'3 (1.1-4.8); LYMPHOCYTES % (AUTO) 21.8 % (21-51); MEAN CORPUSCULAR HEMOGLOBIN 28.8 PG (27.0-31.0); MEAN CORPUSCULAR HGB CONC 32.9 g/dL (33.0-36.5); MEAN CORPUSCULAR VOLUME 87.6 FL (78-98); MONOCYTES # (AUTO) 0.6 X10'3 (0-0.9); MONOCYTES % (AUTO) 7.2 % (2-12); NEUTROPHILS # (AUTO) 5.7 X10'3 (1.8-7.7); NEUTROPHILS % (AUTO) 66.4 % (42-75); PLATELET COUNT 389 X10'3 (140-440); RED BLOOD COUNT 3.91 X10'6 (4.20-5.60); RED CELL DISTRIBUTION WIDTH 16.9 % (11.5-14.5); WHITE BLOOD COUNT 8.6 X10'3 (4.5-11.0)
[2023-01-05 10:15] LABS: ALANINE AMINOTRANSFERASE 23 U/L (12-78); ALBUMIN 2.4 G/DL (3.4-5.0); ALBUMIN/GLOBULIN RATIO 0.6 (1.1-1.5); ALKALINE PHOSPHATASE 73 IU/L (46-116); ANION GAP 10 (8-16); ASPARTATE AMINO TRANSFERASE 25 U/L (10-37); BILIRUBIN,TOTAL 0.2 MG/DL (0.1-1.0); BLOOD UREA NITROGEN 8 MG/DL (7-18); BUN/CREATININE RATIO 10.7 (10.0-20.0); CALCIUM 10.8 MG/DL (8.5-10.1); CHLORIDE 105 MMOL/L (99-107); CREATININE 0.75 MG/DL (0.40-0.90); GLUCOSE 115 MG/DL (70-104); MAGNESIUM 1.6 MG/DL (1.5-2.4); POTASSIUM 3.3 MMOL/L (3.5-5.1); SODIUM 141 MMOL/L (135-145); TOTAL CARBON DIOXIDE 26.4 MMOL/L (24-32); TOTAL PROTEIN 6.6 G/DL (6.4-8.2); eCRCL 60 ML/MIN; eGFR 76 ML/MIN
--- NOTE | 2023-01-05 10:50 | NUR ---
Spoke w/ wound care and stated to transport the patient w/ the tube clamped. Relayed to [facility]. IV has been already d/c'd from prior shift. Belongings sent w/ pt during transportation w/ [employer]. Report was already given to the nurse at [facility] yesterday. Patient no distress at the time of d/c.
== END 2023-01-05 11:05 | DRG 579 ==
LOC: ORTHO 4S 15:56
PROVIDERS: ADMIT Family Medicine; ATTEND Family Medicine
PROC: BW211ZZ Computerized Tomography (CT Scan) of Abdomen and Pelvis using Low Osmolar Contrast (ICD-10-PCS; 2022-12-29)
PROC: 0KBN0ZZ Excision of Right Hip Muscle, Open Approach (ICD-10-PCS; 2022-12-31)
PROC: 0KBP0ZZ Excision of Left Hip Muscle, Open Approach (ICD-10-PCS; principal; 2022-12-31 08:18)
DX: L89.154 Pressure ulcer of sacral region, stage 4 (principal); E43 Unspecified severe protein-calorie malnutrition; E87.1 Hypo-osmolality and hyponatremia; D62 Acute posthemorrhagic anemia; E78.5 Hyperlipidemia, unspecified; F32.A Depression, unspecified; I10 Essential (primary) hypertension; Z66 Do not resuscitate; E87.6 Hypokalemia; K21.9 Gastro-esophageal reflux disease without esophagitis; Z86.73 Personal history of transient ischemic attack (TIA), and cerebral infarction without residual deficits; Z87.891 Personal history of nicotine dependence; Z90.710 Acquired absence of both cervix and uterus; Z79.899 Other long term (current) drug therapy; Z68.23 Body mass index [BMI] 23.0-23.9, adult
CPT/HCPCS: 36415; 71045; 74177; 80048; 80053; 80202; 81001; 82948; 83735; 84100; 84132; 85025; 85610; 85730; 87070; 87075; 87077; 87081; 87088; 87186; 97110; 97161; 97164; 97530; 97597; 97598; A4314; A4615; A4618; A4649; A5200; A6253; A6446; A6449; A7000; G0378; J0131; J0696; J1100; J1170; J2250; J2270; J2405; J2543; J2704; J3010; J3370; J3490; J7030; Q9963; Q9967

== ENCOUNTER → 2024-10-23 | Outpatient (CLI) | payer MEDICARE, MEDICAID ==
[~2024-10-23] MED LIST: AMLO-888 PO; ATOR40TA14 PO; CARV-49 PO; CLON-473 PO; DOCU-149 PO; EZET10TA6 PO; FAMO20TA79 PO; FENO160T30 PO; HYDR-3965 PO; LEVE500T PO; LOSA100T58 PO; MULT-1085 PO; SENN-360 PO; VENL75TA4 PO; VIBE75TA PO
--- NOTE | 2024-10-23 18:18 | CARDIOLOGY REPORT ---
APPROVED REPORT EXAM: Comprehensive 2D, Doppler, and color-flow Echocardiogram. Patient Location: OUT-PATIENT Blood Pressure: 134 / 64 mmHg Heart Rate: 68 bpm Rhythm: SINUS Indications SHORT OF BREATH HYPERTENSION CEREBRALVASCULAR ACCIDENT [employer]: Melissa Castillo MD Previous echo: NONE 2D Dimensions RVDd 3.5 cm LVOT Diameter 1.78 (1.8-2.4cm) M-Mode Dimensions Left Atrium(MM) 3.66 (2.5-4.0cm) IVSd 0.89 (0.7-1.1cm) LVDd 5.36 (4.0-5.6cm) Aortic Root 2.32 (2.2-3.7cm) PWd 0.95 (0.7-1.1cm) IVSs 1.50 cm LVDs 3.78 (2.0-3.8cm) FS (%) 30 % PWs 1.24 cm ESV(Teich) 61.0 ml LVEF(%) 56 (>50%) Aortic Valve AoV Peak Tye. 134.6 cm/s AoV VTI 25.2 cm AO Peak GR. 7.1 mmHg AO Mean GR. 4 mmHg LVOT VTI 20.92 cm LVOT Peak Tye. 107.8 cm/s LES (VMAX) 2.05 cm2 LES (VTI) 2.07 cm2 Mitral Valve MV E Velocity 62.7 cm/s MV DECEL TIME 222 ms MV A Velocity 87.3 cm/s MV PHT 63 ms E/A Ratio 0.7 MVA (PHT) 3.49 cm2 LEFT VENTRICLE Normal LV size and wall thickness. Overall systolic function is normal. LVEF is 55-60%. RIGHT VENTRICLE RV is mildly increased in size with normal function. Thickened RV free wall. ATRIA The left atrium size is normal. AORTIC VALVE Trileaflet AV appears mildly sclerotic without stenosis or insufficiency. MITRAL VALVE Mild MV annular calcification without stenosis. Trace regurgitation. TRICUSPID VALVE TV appears structurally normal with trace regurgitation. PULMONIC VALVE Normal PV without stenosis, physiologic insufficiency. GREAT VESSELS Aortic root is normal in size. Ascending aorta is normal in size. PERICARDIUM Normal pericardium. No effusion. Other Information Study Quality: Technically Difficult apicals due to breast implants. Conclusion Normal LV size and wall thickness. Overall systolic function is normal. LVEF is 55-60%. RV is mildly increased in size with normal function. Thickened RV free wall. The left atrium size is normal. Trileaflet AV appears mildly sclerotic without stenosis or insufficiency. Mild MV annular calcification without stenosis. Trace regurgitation. TV appears structurally normal with trace regurgitation. Normal pericardium. No effusion.
== END | disposition home or self-care (01) ==
LOC: RAD 10:00
PROVIDERS: ATTEND Internal Medicine Interventional Cardiology
DX: I08.0 Rheumatic disorders of both mitral and aortic valves (principal); R06.02 Shortness of breath; I63.40 Cerebral infarction due to embolism of unspecified cerebral artery; I70.213 Atherosclerosis of native arteries of extremities with intermittent claudication, bilateral legs; I10 Essential (primary) hypertension; Z98.82 Breast implant status
CPT/HCPCS: 93306